=== PATIENT | male | born 1995 | race Two or more races ===

== ENCOUNTER 2021-04-08 15:03 | Emergency (ER) | payer OTHER ==
[~2021-04-08] VITALS: Ht 165.1 cm; Wt 81.6 kg
--- NOTE | 2021-04-08 15:06 | NUR ---
PT IS IN ROOM #1B. DR ROSENBERG EVALUATED THE PT.
[2021-04-08] MEDS ORDERED: IV NORMAL SALINE 1000 ML BAG IV ONE (15:45)
[2021-04-08] MEDS ORDERED: SWABABLE VALVE TRANSFER SET EA MC ONE (16:13)
[2021-04-08] MEDS ORDERED: IV NORMAL SALINE 250 ML IV ONE (16:14)
[2021-04-08] MEDS ORDERED: IOHEXOL 300MG/ML 100 ML INFUS..BTL ONE (16:14)
[2021-04-08 16:18] LABS: HEMATOCRIT 49.4 % (36.7-47.1); MEAN CORPUSCULAR HEMOGLOBIN 29.1 uug (23.8-33.4); MEAN CORPUSCULAR VOLUME 85.1 fL (73.0-96.2); PLATELET COUNT (AUTO) 194 K/uL (152-348)
[2021-04-08 16:26] LABS: CREATININE 1.1 mg/dL (0.6-1.3); POTASSIUM 3.6 mmol/L (3.5-5.1)
[2021-04-08] MEDS ORDERED: DEXTROSE 50% 50 ML DISP.SYRIN IV ONE (17:00)
[2021-04-08] MEDS ORDERED: ACET-2154 PO (18:35)
[2021-04-08] MEDS ORDERED: MORPHINE SULFATE 4 MG/1 ML DISP.SYRIN ONE (18:42)
--- NOTE | 2021-04-08 18:43 | NUR ---
PT WAS D/C'd TO HOME. D/C INSTRUCTIONS GIVEN TO THE PT BY DR ROSENBERG.
[2021-04-08] MEDS ORDERED: MORPHINE SULFATE 4 MG/1 ML DISP.SYRIN IV ONE (18:45)
[2021-04-08 18:46] VITALS: BP 136/78
== END 2021-04-08 18:49 | disposition home or self-care (01) ==
LOC: ER 15:03
DX: S09.90XA Unspecified injury of head, initial encounter (principal); S02.5XXA Fracture of tooth (traumatic), initial encounter for closed fracture; S00.83XA Contusion of other part of head, initial encounter; S30.0XXA Contusion of lower back and pelvis, initial encounter; W31.89XA Contact with other specified machinery, initial encounter; Y92.61 Building [any] under construction as the place of occurrence of the external cause; Y99.0 Civilian activity done for income or pay
CPT/HCPCS: 36415; 70450; 71260; 72125; 74177; 80048; 85025; 96361; 96374; 99285; J2270; Q9967; A4663; J7030; J7050